=== PATIENT | male | born 1950 | race Caucasian/White ===

== ENCOUNTER 2019-03-27 21:14 | Emergency (ER) | payer OTHER ==
[~2019-03-27] VITALS: Ht 185 cm; Wt 136.5 kg
[2019-03-27] MEDS ORDERED: RX-MUPIROCIN (BACTROBAN) 2% OINT 22 GM TUBE TOP STA (22:01)
--- NOTE | 2019-03-27 22:13 | ED Upper Extremity ---
General Chief Complaint: Trauma-Non Activation Stated Complaint: L HAND/SIDE PAIN Nursing Triage Note: fell out of recliner approx. 2100 c/o left forearm, left antertior rib pain. denies loc. skin tear to left forearm. bleeding stopped. ice pack applied. Nursing Sepsis Screen: No Definite Risk History of Present Illness Date Seen by Provider: Mar 27, 2019 Time Seen by Provider: 22:00 Initial Comments 68-year-old male reports that he was standing up from a recliner when he lost his balance falling to the left into a table. He reports left rib pain and tenderness in his left wrist along with a skin tear to his left forearm. His last tetanus vaccine was approximately 2 years ago. He is a diabetic. He does not take any anticoagulants. He denies any loss of consciousness, headache, neck pain or head injury. Onset: just prior to arrival Pain/Injury Location: left forearm Method of Injury: fell Allergies and Home Medications Allergies Coded Allergies: No Known Drug Allergies (Unverified , 03/27/19) Home Medications Amlodipine Besylate 2.5 Mg Tablet, 2.5 MG PO DAILY, (Reported) Insulin Aspart 300 Units/3 Ml Solution, Unknown Dose SQ AC, (Reported) Valsartan 320 Mg Tablet, 320 MG PO DAILY, (Reported) Patient Home Medication List Home Medication List Reviewed: Yes Review of Systems Constitutional: no symptoms reported, see HPI Respiratory: see HPI, other (Left rib pain) Musculoskeletal: see HPI, joint pain (Left wrist) Skin: see HPI, other (Abrasion left forearm) All Other Systems Reviewed Negative Unless Noted: Yes Past Qsrjiwp-Udtwjq-Kkaleb Hx Past Med/Social Hx: Reviewed Nursing Past Med/Soc Hx Patient Social History Alcohol Use: Occasionally Uses Recreational Drug Use: No Smoking Status: Never a Smoker 2nd Hand Smoke Exposure: No Recent Foreign Travel: No Contact w/Someone Who Travel: No Recent Infectious Disease Expo: No Recent Hopitalizations: No Physical Abuse: No Sexual Abuse: No Mistreated: No Fear: No Immunizations Up To Date Tetanus Booster (TDap): Less than 5yrs Seasonal Allergies Seasonal Allergies: No Past Medical History Surgeries: Yes (UMB. HERNIA, BACK FUSION, BILATERAL KNEE, CATARACTS, SINUS) Abdominal, Eye Surgery, Gallbladder, Orthopedic Respiratory: No Cardiac: Yes Coronary Artery Disease, High Cholesterol, Hypertension Neurological: No Genitourinary: Yes Prostate Problems Gastrointestinal: Yes Abdominal Hernia, Gastroesophageal Reflux Musculoskeletal: Yes Arthritis, Fractures Endocrine: Yes Diabetes, Insulin dep HEENT: Yes Cataract Cancer: No Psychosocial: Yes Depression Integumentary: No Blood Disorders: No Physical Exam Vital Signs Vital Signs - First Documented 03/27/19 21:43 Temp 36.6 Pulse 54 Resp 16 B/P (MAP) 153/66 (95) Pulse Ox 95 O2 Delivery Room Air Capillary Refill : Less Than 3 Seconds Height, Weight, BMI Height: '" Weight: lbs. oz. kg; 39.00 BMI Method: General Appearance: WD/WN, no apparent distress HEENT: PERRL/EOMI, normal ENT inspection, TMs normal, pharynx normal, other (normocephalic with no tenderness) Neck: non-tender, full range of motion, supple, normal inspection Cardiovascular: normal peripheral pulses, regular rate, rhythm Respiratory: lungs clear, normal breath sounds, other (tenderness left distal lateral ribs. No crepitus, erythema or ecchymosis.) Gastrointestinal: normal bowel sounds, non tender, soft Wrist: Yes normal ROM, Yes bone tenderness, Yes soft tissue tenderness Hand: normal inspection, non-tender, normal ROM, Left Neurologic/Tendon: normal sensation, normal motor functions, normal tendon functions Neurologic/Psychiatric: no motor/sensory deficits, alert, normal mood/affect, oriented x 3 Skin: normal color, warm/dry, other (abrasion to left forearm, no active bleeding.) Progress/Results/Core Measures Results/Orders My Orders Orders - AUTUMN BLOOM [employer]TE[employer]CE [employer]PER[employer]OR Ribs, Left 2-3 Views (03/27/19 21:56) Wrist, Left, 3 Views Or More (03/27/19 22:00) Rx-Mupirocin 2% Oint (Rx-Bactroban) (03/27/19 22:01) Vital Signs/I&O 03/27/19 21:43 Temp 36.6 Pulse 54 Resp 16 B/P (MAP) 153/66 (95) Pulse Ox 95 O2 Delivery Room Air Blood Pressure Mean: 95 Progress Progress Note : Time: 22:00 Progress Note Patient seen and evaluated, will obtain x-rays of the left ribs and left wrist. Abrasion to left forearm irrigated with 500 ML's of sterile saline with Hibiclens. Bactroban applied and sterile dressing. Patient reports pain to be a 3/10, declining need for pain medication at this time. Awaiting x-rays. 2144 patient to x-ray. 2309 no acute findings on x-ray. Discharge instructions and return precautions reviewed with the patient and family. Diagnostic Imaging Diagonstic Imaging: Xray Plain Films/CT/US/NM/MRI: other (Left Ribs and Wrist) Comments No fractures or acute findings. Will be over-read by radiology tomorrow. Reviewed: Reviewed by Me, Reviewed/Discussed (with Dr. Stewart. ) Departure Impression Primary Impression: Rib contusion Qualified Codes: S20.212A - Contusion of left front wall of thorax, initial encounter Additional Impressions: Abrasion of left forearm, initial encounter Fall Qualified Codes: W19.XXXA - Unspecified fall, initial encounter Disposition: HOME, SELF-CARE Condition: Improved Departure-Patient Inst. Decision time for Depature: 23:10 Referrals: NO,LOCAL PHYSICIAN (PCP/Family) Primary Care Physician Patient Instructions: Bruised Rib (DC), Skin Abrasions (DC) Add. Discharge Instructions: Clean wounds to left arm with peroxide and apply the Bactroban ointment 3 times daily. Activity as tolerated, use a pillow to splint the area on the ribs that is t lalo. Every hour take 10 deep breaths and cough 5-10 times. Warm, Moist towels to ribs, 20 min every 2 hours, as needed for rib pain. You may alternate between Tylenol 650 mg and ibuprofen 600 mg every 4 hours for pain. Follow-up with your primary care provider if symptoms are not improving or worsen. Return to the emergency department for new, urgent health care needs. All discharge instructions reviewed with patient and/or family. Voiced understanding. AUTUMN BLOOM Mar 27, 2019 22:13
[2019-03-27] MEDS ORDERED: INSU100I14 SQ (22:17)
[2019-03-27] MEDS ORDERED: ROSU40TA23 PO (22:17)
[2019-03-27] MEDS ORDERED: INSU100V6 SQ (22:17)
[2019-03-27] MEDS ORDERED: OMEP-280 PO (22:17)
[2019-03-27] MEDS ORDERED: VENL50TA2 PO (22:17)
[2019-03-27] MEDS ORDERED: ALOG25TA2 PO (22:17)
[2019-03-27] MEDS ORDERED: TRAZ-190 PO (22:17)
[2019-03-27] MEDS ORDERED: ASPI-808 PO (22:17)
[2019-03-27] MEDS ORDERED: EMPA10TA PO (22:17)
[2019-03-27] MEDS ORDERED: TMSL.4C PO (22:17)
[2019-03-27] MEDS ORDERED: VENL100T2 PO (22:17)
[2019-03-27] MEDS ORDERED: AMLO2.5T4 PO (22:17)
[2019-03-27] MEDS ORDERED: MAGN400T39 PO (22:17)
[2019-03-27] MEDS ORDERED: VALS320T15 PO (22:17)
[2019-03-27 23:18] VITALS: BP 135/58
--- NOTE | 2019-03-28 07:43 | Diagnostic Imaging Report ---
INDICATION: Pain post fall. TECHNIQUE: 3 views left ribs, 11:02 PM. CORRELATION STUDY: None FINDINGS: No acute displaced left sided rib fracture. Visualized left lung relatively clear without significant infiltrate or effusion or pneumothorax. IMPRESSION: 1. Negative for acute displaced left-sided rib fracture. Dictated by: Dictated on workstation # [id number]
--- NOTE | 2019-03-28 08:09 | Diagnostic Imaging Report ---
INDICATION: Fall, pain TECHNIQUE: 3 views of the left wrist CORRELATION STUDY: None FINDINGS: The osseous structures of the wrist have an unremarkable appearance. Alignment is anatomic. There is no acute bony abnormality. The visualized soft tissues appearing unremarkable. Soft tissue vascular calcification is present. IMPRESSION: 1. Negative examination of the wrist. Dictated by: Dictated on workstation # [id number]
== END 2019-03-27 23:22 | disposition home or self-care (01) ==
LOC: ER 21:17
DX: S20.212A Contusion of left front wall of thorax, initial encounter (principal); S50.812A Abrasion of left forearm, initial encounter; E11.9 Type 2 diabetes mellitus without complications; I10 Essential (primary) hypertension; I25.10 Atherosclerotic heart disease of native coronary artery without angina pectoris; Z79.4 Long term (current) use of insulin; W18.39XA Other fall on same level, initial encounter
CPT/HCPCS: 71100; 73110